=== PATIENT | male | born 1940 | race Two or more races ===

== ENCOUNTER → 2017-08-22 11:46 | Outpatient (CLI) | payer OTHER | END | disposition home or self-care (01) | LOC: LAB 11:46 | DX: N39.0 Urinary tract infection, site not specified (principal); E78.2 Mixed hyperlipidemia; Z12.11 Encounter for screening for malignant neoplasm of colon; I11.9 Hypertensive heart disease without heart failure; N40.0 Benign prostatic hyperplasia without lower urinary tract symptoms ==

== ENCOUNTER 2017-08-24 13:27 | Outpatient (CLI) | payer OTHER | END 2017-08-24 13:48 | disposition home or self-care (01) | LOC: LAB 13:27 | DX: N39.0 Urinary tract infection, site not specified (principal); E78.2 Mixed hyperlipidemia; Z12.11 Encounter for screening for malignant neoplasm of colon; I11.9 Hypertensive heart disease without heart failure; N40.0 Benign prostatic hyperplasia without lower urinary tract symptoms ==

== ENCOUNTER 2017-09-06 15:21 | Outpatient (CLI) | payer OTHER | END 2017-09-06 16:36 | disposition home or self-care (01) | LOC: SONOGRAMA 15:21 | DX: E07.1 Dyshormogenetic goiter (principal) ==

== ENCOUNTER → 2018-04-19 11:28 | Outpatient (CLI) | payer OTHER | END | disposition home or self-care (01) | LOC: LAB 11:28 | DX: E06.9 Thyroiditis, unspecified (principal); N40.0 Benign prostatic hyperplasia without lower urinary tract symptoms; E55.9 Vitamin D deficiency, unspecified; N39.0 Urinary tract infection, site not specified; Z12.11 Encounter for screening for malignant neoplasm of colon ==

== ENCOUNTER 2018-04-20 10:40 | Outpatient (CLI) | payer OTHER | END 2018-04-20 10:45 | disposition home or self-care (01) | LOC: LAB 10:40 | DX: E06.9 Thyroiditis, unspecified (principal); E55.9 Vitamin D deficiency, unspecified; N39.0 Urinary tract infection, site not specified; N40.0 Benign prostatic hyperplasia without lower urinary tract symptoms; I10 Essential (primary) hypertension; Z12.11 Encounter for screening for malignant neoplasm of colon ==

== ENCOUNTER 2018-10-26 09:24 | Outpatient (CLI) | payer OTHER | END 2018-10-26 09:39 | disposition home or self-care (01) | LOC: LAB 09:24 | DX: N39.0 Urinary tract infection, site not specified (principal); E06.9 Thyroiditis, unspecified; E78.9 Disorder of lipoprotein metabolism, unspecified; I10 Essential (primary) hypertension; Z12.11 Encounter for screening for malignant neoplasm of colon ==

== ENCOUNTER → 2018-11-21 | Outpatient (CLI) | payer OTHER | END | disposition home or self-care (01) | LOC: NUCLEAR 10:56 | DX: M81.0 Age-related osteoporosis without current pathological fracture (principal) ==

== ENCOUNTER 2018-12-28 11:08 | Outpatient (CLI) | payer OTHER | END 2018-12-28 12:07 | disposition home or self-care (01) | LOC: LAB 11:08 | DX: N40.0 Benign prostatic hyperplasia without lower urinary tract symptoms (principal); R31.29 Other microscopic hematuria; E06.5 Other chronic thyroiditis ==

== ENCOUNTER 2019-05-05 11:13 | Outpatient (CLI) | payer OTHER | END 2019-05-05 15:00 | disposition home or self-care (01) | LOC: LAB 11:13 | DX: N39.0 Urinary tract infection, site not specified (principal); E06.9 Thyroiditis, unspecified; E78.9 Disorder of lipoprotein metabolism, unspecified; I10 Essential (primary) hypertension ==

== ENCOUNTER 2019-08-30 12:18 | Outpatient (CLI) | payer OTHER | END 2019-08-30 12:28 | disposition home or self-care (01) | LOC: LAB 12:18 | DX: E78.89 Other lipoprotein metabolism disorders (principal); E06.5 Other chronic thyroiditis; N39.0 Urinary tract infection, site not specified; Z12.11 Encounter for screening for malignant neoplasm of colon; I10 Essential (primary) hypertension ==

== ENCOUNTER 2019-09-14 13:27 | Outpatient (CLI) | payer OTHER | END 2019-09-14 15:42 | disposition home or self-care (01) | LOC: LAB 13:27 | DX: R31.29 Other microscopic hematuria (principal) ==

== ENCOUNTER 2019-09-15 08:42 | Outpatient (CLI) | payer OTHER | END 2019-09-15 08:43 | disposition home or self-care (01) | LOC: SONOGRAMA 08:42 → MAMO-SONO 09:45 | DX: R31.29 Other microscopic hematuria (principal); N17.9 Acute kidney failure, unspecified ==

== ENCOUNTER 2019-10-06 12:08 | Inpatient (IN) | payer OTHER ==
[~2019-10-06] VITALS: Ht 165.1 cm; Wt 51.7 kg
--- NOTE | 2019-10-06 12:18 | NUR ---
REFERIDO A ER POR . . REFIERE TENER PROBLEMAS CON SHEA.
[2019-10-06] MEDS ORDERED: LEVOTHYROXINE25 MCG PO (12:24)
[2019-10-06] MEDS ORDERED: TAMS0.4C PO (12:24)
[2019-10-06] MEDS ORDERED: NEURIN (12:25)
[2019-10-06] MEDS ORDERED: VITACEL TABLET1 EACH PO (12:25)
[2019-10-06] MEDS ORDERED: MEGARED OMEGA-1 EAC2 (12:25)
--- NOTE | 2019-10-06 14:42 | NUR ---
SE EDUCA A PTE SOBRE [place] REFIERE ENTENDER. SE MELISSA MUESTRAS FREIDA BUTILIZANDO MEDIDAS ASEPTICAS. SE COLOCA H/L A PTE EL CUAL SE ENCUENTRA PATENTE CHEYENNE DE EDEMA Y ENROJECIMIENTO. SE COLOCA CARLSON #16 UTILIZANDO MEDIDAS ESTERILES. PTE CON OUTPUT DE 500ML. PTE SE CONTINUAMONITORIANDO POR CAMBIOS.
--- NOTE | 2019-10-06 16:02 | NUR ---
PT ALERTA Y ORIENTADO X3 ESFERAS, SOLO. SE RECIBE EN TESHA CON BARANDAS ELEVADAS. HEPARIN LOCK PATENTE CHEYENNE DE EDEMA Y/O ERITEMA. CARLSON CATETER PATENTE DRENANDO LA ORINA COLOR AMARILLO INTENSO, AL MOMENTO UN OUTPUT DE 400ML. PT [place]. SE MANTIENE BAJO OBSERVACION POR CAMBIOS EN MIGUEL.
[2019-10-09] MEDS ORDERED: ABANEU-SL TABL1 EACH (08:43)
== END 2019-10-09 13:51 | disposition home or self-care (01) | DRG 726 ==
LOC: ER 12:08 → MEDI 16:46
PROVIDERS: ADMIT Internal Medicine
PROC: BW21ZZZ Computerized Tomography (CT Scan) of Abdomen and Pelvis (ICD-10-PCS; principal; 2019-10-08)
DX: N40.1 Benign prostatic hyperplasia with lower urinary tract symptoms (principal); N13.39 Other hydronephrosis; N19 Unspecified kidney failure; R33.8 Other retention of urine; E03.9 Hypothyroidism, unspecified; F41.9 Anxiety disorder, unspecified; R31.9 Hematuria, unspecified

== ENCOUNTER 2019-10-10 02:08 | Emergency (ER) | payer OTHER ==
[~2019-10-10] VITALS: Ht 165.1 cm; Wt 51.7 kg
[~2019-10-10 02:08] MED LIST: ABANEU-SL TABL1 EACH; LEVOTHYROXINE25 MCG PO; MEGARED OMEGA-1 EAC2; NEURIN; TAMS0.4C PO; VITACEL TABLET1 EACH PO
== END 2019-10-10 04:03 | disposition home or self-care (01) ==
LOC: ER 02:08
DX: N47.2 Paraphimosis (principal)

== ENCOUNTER 2019-10-11 08:10 | Outpatient (CLI) | payer OTHER | END 2019-10-11 09:10 | disposition home or self-care (01) | LOC: NUCLEAR 08:10 | DX: I65.23 Occlusion and stenosis of bilateral carotid arteries (principal) ==

== ENCOUNTER → 2019-10-16 10:17 | Outpatient (CLI) | payer OTHER | END | disposition home or self-care (01) | LOC: LAB 10:17 | DX: I10 Essential (primary) hypertension (principal) ==

== ENCOUNTER 2019-10-29 13:02 | Emergency (ER) | payer OTHER ==
[~2019-10-29] VITALS: Ht 165.1 cm; Wt 51.7 kg
[2019-10-29] MEDS ORDERED: LEVOTHYROXINE25 MCG PO (13:24)
== END 2019-10-29 16:19 | disposition home or self-care (01) ==
LOC: ER 13:02
DX: J06.9 Acute upper respiratory infection, unspecified (principal)

== ENCOUNTER → 2019-11-19 | Emergency (ER) | payer OTHER ==
[~2019-11-19] VITALS: Ht 165.1 cm; Wt 45.4 kg
[~2019-11-19] MED LIST changes: +MIRALAX17 GM PO
== END | disposition home or self-care (01) ==
LOC: ER 20:17
DX: K59.09 Other constipation (principal)

== ENCOUNTER 2020-01-04 07:52 | Outpatient (CLI) | payer OTHER | END 2020-01-04 15:05 | disposition home or self-care (01) | LOC: NUCLEAR 07:52 | PROVIDERS: ATTEND Internal Medicine Cardiovascular Disease | DX: I11.9 Hypertensive heart disease without heart failure (principal) | CPT/HCPCS: 78452; 93017; A9500; J0153 ==

== ENCOUNTER → 2020-06-12 10:08 | Outpatient (CLI) | payer OTHER | END | disposition home or self-care (01) | LOC: LAB 10:08 | PROVIDERS: ATTEND Urology | DX: N30.00 Acute cystitis without hematuria (principal); B96.1 Klebsiella pneumoniae [K. pneumoniae] as the cause of diseases classified elsewhere ==

== ENCOUNTER 2020-07-08 09:51 | Outpatient (CLI) | payer OTHER | END 2020-07-08 09:57 | disposition home or self-care (01) | LOC: LAB 09:51 | PROVIDERS: ATTEND Internal Medicine | DX: N40.1 Benign prostatic hyperplasia with lower urinary tract symptoms (principal); N39.0 Urinary tract infection, site not specified; I10 Essential (primary) hypertension ==

== ENCOUNTER 2020-08-11 16:11 | Emergency (ER) | payer OTHER ==
[~2020-08-11] VITALS: Ht 157.5 cm; Wt 49.9 kg
== END 2020-08-11 17:35 | disposition home or self-care (01) ==
LOC: ER 16:11
DX: T83.098A Other mechanical complication of other urinary catheter, initial encounter (principal)

== ENCOUNTER 2020-09-17 11:57 | Outpatient (CLI) | payer OTHER | END 2020-09-17 12:39 | disposition home or self-care (01) | LOC: SONOGRAMA 11:57 | PROVIDERS: ATTEND Urology | DX: N40.1 Benign prostatic hyperplasia with lower urinary tract symptoms (principal); R33.8 Other retention of urine ==

== ENCOUNTER 2020-11-15 10:35 | Outpatient (CLI) | payer OTHER | END 2020-11-15 10:44 | disposition home or self-care (01) | LOC: LAB 10:35 | PROVIDERS: ATTEND Urology | DX: R31.1 Benign essential microscopic hematuria (principal); N30.00 Acute cystitis without hematuria ==

== ENCOUNTER 2020-12-01 09:00 | Inpatient (IN) | payer OTHER ==
[2020-12-01] MEDS ORDERED: TIROSINT50 MCG PO (15:39)
[2020-12-01] MEDS ORDERED: CHILDREN'S ASPI81 MG PO (15:40)
[2020-12-01] MEDS ORDERED: ATORVASTATIN CA10 MG PO (15:40)
[2020-12-01] MEDS ORDERED: CALTRATE PO (15:40)
[2020-12-01] MEDS ORDERED: NEURIN SL (15:41)
[2020-12-09] MEDS ORDERED: CIPROFLOXACIN250 MG (08:25)
[2020-12-09] MEDS ORDERED: METHENAMINE HIPP1 GM (08:25)
[2020-12-09] MEDS ORDERED: DUTASTERIDE0.5 MG (08:25)
[2020-12-09] MEDS ORDERED: ABANEU-SL TABL1 EACH (08:26)
[2020-12-09] MEDS ORDERED: CALCIUM CARBON260 M1 (08:27)
== END 2020-12-10 10:21 | disposition home or self-care (01) | DRG 714 ==
LOC: ADM 09:00 → CIR.AMB 12-08 06:26 → SURH 12-08 09:00 → CIR.AMB 12-08 09:00 → EDSTATUS 12-08 09:00 → O/R 12-08 13:31 → SURH 12-08 13:31
PROVIDERS: ADMIT Urology; ATTEND Urology
PROC: 0VB08ZZ Excision of Prostate, Via Natural or Artificial Opening Endoscopic (ICD-10-PCS; principal; 2020-12-08 08:30)
DX: N40.0 Benign prostatic hyperplasia without lower urinary tract symptoms (principal); R33.8 Other retention of urine; K59.09 Other constipation

== ENCOUNTER → 2020-12-11 14:25 | Outpatient (CLI) | payer OTHER ==
[~2020-12-11 14:25] MED LIST changes: +ATORVASTATIN CA10 MG PO; +CALCIUM CARBON260 M1; +CALTRATE PO; +CHILDREN'S ASPI81 MG PO; +CIPROFLOXACIN250 MG; +DUTASTERIDE0.5 MG; +METHENAMINE HIPP1 GM; +NEURIN SL; +TIROSINT50 MCG PO
== END | disposition home or self-care (01) ==
LOC: LAB 14:25
PROVIDERS: ATTEND Urology
DX: N30.00 Acute cystitis without hematuria (principal)

== ENCOUNTER → 2021-01-08 10:58 | Outpatient (CLI) | payer OTHER | END | disposition home or self-care (01) | LOC: LAB 10:58 | PROVIDERS: ATTEND Internal Medicine | DX: E06.9 Thyroiditis, unspecified (principal); E11.65 Type 2 diabetes mellitus with hyperglycemia ==

== ENCOUNTER → 2021-03-07 09:56 | Outpatient (CLI) | payer OTHER | END | disposition home or self-care (01) | LOC: LAB 09:56 | DX: R33.8 Other retention of urine (principal); N30.00 Acute cystitis without hematuria; R97.20 Elevated prostate specific antigen [PSA] ==

== ENCOUNTER → 2021-04-25 | Outpatient (CLI) | payer OTHER | END | disposition home or self-care (01) | LOC: LAB 10:29 | PROVIDERS: ATTEND Internal Medicine | DX: E06.5 Other chronic thyroiditis (principal); N39.0 Urinary tract infection, site not specified; Z12.11 Encounter for screening for malignant neoplasm of colon ==

== ENCOUNTER → 2021-06-03 14:30 | Outpatient (CLI) | payer OTHER | END | disposition home or self-care (01) | LOC: LAB 14:30 | PROVIDERS: ATTEND Internal Medicine | DX: B96.81 Helicobacter pylori [H. pylori] as the cause of diseases classified elsewhere (principal) ==

== ENCOUNTER 2021-07-15 08:00 | Outpatient (CLI) | payer OTHER | END 2021-07-15 08:30 | disposition home or self-care (01) | LOC: PPH VACUNA 08:00 | PROVIDERS: ATTEND Emergency Medicine Pediatric Emergency Medicine | DX: Z23 Encounter for immunization (principal) ==

== ENCOUNTER 2021-09-24 11:01 | Outpatient (CLI) | payer OTHER | END 2021-09-24 11:10 | disposition home or self-care (01) | LOC: LAB 11:01 | PROVIDERS: ATTEND Internal Medicine | DX: I11.9 Hypertensive heart disease without heart failure (principal); E78.9 Disorder of lipoprotein metabolism, unspecified; Z12.11 Encounter for screening for malignant neoplasm of colon; N39.0 Urinary tract infection, site not specified; E06.9 Thyroiditis, unspecified ==

== ENCOUNTER 2021-10-20 14:20 | Emergency (ER) | payer OTHER ==
[~2021-10-20] VITALS: Ht 162.6 cm; Wt 51.7 kg
== END 2021-10-20 17:07 | disposition home or self-care (01) ==
LOC: ER 14:20
DX: T20.24XA Burn of second degree of nose (septum), initial encounter (principal); X08.8XXA Exposure to other specified smoke, fire and flames, initial encounter; Y93.9 Activity, unspecified; Y92.9 Unspecified place or not applicable; Z91.048 Other nonmedicinal substance allergy status; E11.9 Type 2 diabetes mellitus without complications

== ENCOUNTER 2021-12-16 12:02 | Outpatient (CLI) | payer OTHER | END 2021-12-16 12:03 | disposition home or self-care (01) | LOC: LAB 12:02 | PROVIDERS: ATTEND Internal Medicine | DX: E06.9 Thyroiditis, unspecified (principal) ==

== ENCOUNTER 2021-12-19 10:54 | Outpatient (CLI) | payer OTHER | END 2021-12-19 11:00 | disposition home or self-care (01) | LOC: LAB 10:54 | PROVIDERS: ATTEND Internal Medicine Hematology & Oncology | DX: D64.9 Anemia, unspecified (principal); I77.6 Arteritis, unspecified; C49.9 Malignant neoplasm of connective and soft tissue, unspecified; C18.0 Malignant neoplasm of cecum; E03.8 Other specified hypothyroidism; C44.301 Unspecified malignant neoplasm of skin of nose; R74.9 Abnormal serum enzyme level, unspecified; D80.8 Other immunodeficiencies with predominantly antibody defects ==

== ENCOUNTER 2021-12-24 08:00 | Outpatient (CLI) | payer OTHER | END 2021-12-24 08:01 | disposition home or self-care (01) | LOC: NUCLEAR 08:00 | PROVIDERS: ATTEND Internal Medicine Hematology & Oncology | DX: C49.9 Malignant neoplasm of connective and soft tissue, unspecified (principal); C44.301 Unspecified malignant neoplasm of skin of nose; Z88.8 Allergy status to other drugs, medicaments and biological substances | CPT/HCPCS: 78812; A9552 ==

== ENCOUNTER 2022-01-21 12:21 | Outpatient (CLI) | payer OTHER | END 2022-01-21 12:22 | disposition home or self-care (01) | LOC: LAB 12:21 | PROVIDERS: ATTEND Internal Medicine Hematology & Oncology | DX: D64.9 Anemia, unspecified (principal) ==

== ENCOUNTER 2022-01-22 16:03 | Outpatient (CLI) | payer OTHER | END 2022-01-22 16:07 | disposition home or self-care (01) | LOC: LAB 16:03 | DX: C30.0 Malignant neoplasm of nasal cavity (principal) ==

== ENCOUNTER 2022-01-25 09:54 | Outpatient (CLI) | payer OTHER | END 2022-01-25 10:00 | disposition home or self-care (01) | LOC: TOM 09:54 | PROVIDERS: ATTEND Otolaryngology | DX: C30.0 Malignant neoplasm of nasal cavity (principal) | CPT/HCPCS: 70487; Q9965 ==

== ENCOUNTER 2022-03-11 13:10 | Outpatient (CLI) | payer OTHER | END 2022-03-11 13:14 | disposition home or self-care (01) | LOC: LAB 13:10 | PROVIDERS: ATTEND Urology | DX: R33.9 Retention of urine, unspecified (principal); R97.20 Elevated prostate specific antigen [PSA]; R31.1 Benign essential microscopic hematuria ==

== ENCOUNTER 2022-03-17 10:45 | Emergency (ER) | payer OTHER ==
[~2022-03-17] VITALS: Ht 154.9 cm; Wt 43.5 kg
== END 2022-03-17 17:48 | disposition home or self-care (01) ==
LOC: ER 10:45
DX: R17 Unspecified jaundice (principal); D69.6 Thrombocytopenia, unspecified

== ENCOUNTER 2022-07-16 12:53 | Inpatient (IN) | payer OTHER ==
[~2022-07-16] VITALS: Ht 152.4 cm; Wt 45.4 kg
== END 2022-08-21 08:04 | disposition home or self-care (01) | DRG 200 ==
LOC: ER 12:53 → ICU-2 20:49 → ICU 20:49 → SURH 07-29 19:26
PROVIDERS: ADMIT Internal Medicine; ATTEND Internal Medicine
PROC: BW24ZZZ Computerized Tomography (CT Scan) of Chest and Abdomen (ICD-10-PCS; 2022-07-16)
PROC: 0W9930Z Drainage of Right Pleural Cavity with Drainage Device, Percutaneous Approach (ICD-10-PCS; principal; 2022-07-19)
PROC: BW24ZZZ Computerized Tomography (CT Scan) of Chest and Abdomen (ICD-10-PCS; 2022-07-24)
PROC: 4A12X4Z Monitoring of Cardiac Electrical Activity, External Approach (ICD-10-PCS; 2022-07-29)
DX: J93.83 Other pneumothorax (principal); C78.00 Secondary malignant neoplasm of unspecified lung; J90 Pleural effusion, not elsewhere classified; J98.4 Other disorders of lung; C76.0 Malignant neoplasm of head, face and neck; Z66 Do not resuscitate; S01.20XA Unspecified open wound of nose, initial encounter

== ENCOUNTER 2022-09-01 15:00 | Emergency (ER) | payer OTHER ==
[~2022-09-01] VITALS: Ht 162.6 cm; Wt 45.4 kg
== END 2022-09-01 19:48 | disposition home or self-care (01) ==
LOC: ER 15:00
DX: J94.8 Other specified pleural conditions (principal); R05.9 Cough, unspecified; Z85.9 Personal history of malignant neoplasm, unspecified; Z88.8 Allergy status to other drugs, medicaments and biological substances; Z20.822 Contact with and (suspected) exposure to COVID-19

== ENCOUNTER 2022-10-01 13:36 | Inpatient (IN) | payer OTHER ==
[~2022-10-01] VITALS: Ht 167.6 cm; Wt 45.4 kg
[2022-10-04] MEDS ORDERED: CLARITIN10 M1 (08:34)
[2022-10-04] MEDS ORDERED: ATORVASTATIN CA10 MG (08:34)
[2022-10-04] MEDS ORDERED: FAMOTIDINE20 MG (08:34)
== END 2022-10-15 22:16 | disposition expired | DRG 186 ==
LOC: ER 13:36 → SEC-K 22:24 → SURH 22:24
PROVIDERS: ADMIT Internal Medicine; ATTEND Internal Medicine
PROC: 3E0F7SF Introduction of Other Gas into Respiratory Tract, Via Natural or Artificial Opening (ICD-10-PCS; principal; 2022-10-02)
PROC: 4A12X4Z Monitoring of Cardiac Electrical Activity, External Approach (ICD-10-PCS; 2022-10-02)
PROC: BW24ZZZ Computerized Tomography (CT Scan) of Chest and Abdomen (ICD-10-PCS; 2022-10-03)
DX: J94.2 Hemothorax (principal); J18.9 Pneumonia, unspecified organism; C78.00 Secondary malignant neoplasm of unspecified lung; E44.0 Moderate protein-calorie malnutrition; Z68.1 Body mass index [BMI] 19.9 or less, adult; C44.301 Unspecified malignant neoplasm of skin of nose; D53.0 Protein deficiency anemia